=== PATIENT | female | born 1990 | race Two or more races ===

== ENCOUNTER 2016-08-31 07:10 | Emergency (ER) | payer OTHER ==
[~2016-08-31] VITALS: Ht 157.5 cm; Wt 49.9 kg
[2016-08-31 07:13] VITALS: BP 131/88
[2016-08-31] MEDS ORDERED: LORAZEPAM 1 MG TABLET ONE (07:58)
[2016-08-31] MEDS ORDERED: LORAZEPAM 1 MG TABLET PO ONE (08:00)
== END 2016-08-31 08:10 | disposition home or self-care (01) ==
LOC: ER 07:13
DX: F41.9 Anxiety disorder, unspecified (principal); G47.00 Insomnia, unspecified; F33.9 Major depressive disorder, recurrent, unspecified
CPT/HCPCS: 99284; A4606; Z7610

== ENCOUNTER 2016-09-06 17:52 | Emergency (ER) | payer OTHER ==
[~2016-09-06] VITALS: Ht 157.5 cm; Wt 49.9 kg
[2016-09-06 18:00] VITALS: BP 130/80
== END 2016-09-06 18:42 | disposition home or self-care (01) ==
LOC: ER 17:53
DX: R10.32 Left lower quadrant pain (principal); K27.9 Peptic ulcer, site unspecified, unspecified as acute or chronic, without hemorrhage or perforation; F31.9 Bipolar disorder, unspecified; F41.9 Anxiety disorder, unspecified
CPT/HCPCS: 99283; A4606; Z7610